=== PATIENT | female | born 1985 | race Caucasian/White ===

== ENCOUNTER 2018-01-18 11:23 | Inpatient (IN) | payer OTHER ==
[~2018-01-18] VITALS: Ht 61 cm; Wt 5.0 kg
[2018-01-20] MEDS ORDERED: NAPROXEN500 M1 PO (08:55)
== END 2018-01-20 10:00 | disposition home or self-care (01) | DRG 777 ==
LOC: ER 11:23 → SEC-K 17:59 → SURH 17:59
PROVIDERS: Obstetrics & Gynecology
PROC: 10T20ZZ Resection of Products of Conception, Ectopic, Open Approach (ICD-10-PCS; 2018-01-18)
PROC: BU4CZZZ Ultrasonography of Uterus and Ovaries (ICD-10-PCS; 2018-01-18)
PROC: 0UB60ZZ Excision of Left Fallopian Tube, Open Approach (ICD-10-PCS; principal; 2018-01-18 18:00)
DX: O00.102 Left tubal pregnancy without intrauterine pregnancy (principal); K66.1 Hemoperitoneum; O08.1 Delayed or excessive hemorrhage following ectopic and molar pregnancy; O08.89 Other complications following an ectopic and molar pregnancy